=== PATIENT | male | born 1995 | race Caucasian/White ===

== ENCOUNTER 2022-09-04 13:21 | Outpatient (CLI) | payer OTHER, SELFPAY ==
--- NOTE | 2022-09-04 14:04 | XR_ITS ---
WS: [id number] Exam: XR ankle RT min 3V* [id number] Date/Time of Exam: 09/04/2022 2:09 PM Reason For Exam: right ankle fall Comparison 04/06/2014. Nondisplaced comminuted fracture of the lower diaphyses of the fibula noted. No other fractures can b e identified. The ankle mortise is intact. Prominent osteophytes noted along the dorsal margin of the talus and navicular. XR/XR ankle RT min 3V* [id number] IMPRESSION: 1. Comminuted nondisplaced lower fibular fracture. Soft tissue swelling.
== END 2022-09-04 13:22 | disposition home or self-care (01) ==
PROVIDERS: Visit Provider Nurse Practitioner Family
DX: S82.831A Other fracture of upper and lower end of right fibula, initial encounter for closed fracture (principal); X58.XXXA Exposure to other specified factors, initial encounter
CPT/HCPCS: 73610

== ENCOUNTER → 2022-09-27 14:34 | Outpatient (BNVA) | payer OTHER, SELFPAY | PROVIDERS: Visit Provider Podiatrist Foot & Ankle Surgery | DX: S82.831A Other fracture of upper and lower end of right fibula, initial encounter for closed fracture (principal); W10.2XXA Fall (on)(from) incline, initial encounter; L60.3 Nail dystrophy | CPT/HCPCS: 73610 ==

== ENCOUNTER → 2022-10-17 15:39 | Outpatient (BNVA) | payer OTHER, SELFPAY | PROVIDERS: Visit Provider Podiatrist Foot & Ankle Surgery | DX: S82.831A Other fracture of upper and lower end of right fibula, initial encounter for closed fracture (principal); W17.81XA Fall down embankment (hill), initial encounter; L60.3 Nail dystrophy | CPT/HCPCS: 73610 ==

== ENCOUNTER → 2022-11-07 15:36 | Outpatient (BNVA) | payer OTHER, SELFPAY | PROVIDERS: Visit Provider Podiatrist Foot & Ankle Surgery | DX: S82.831A Other fracture of upper and lower end of right fibula, initial encounter for closed fracture (principal); X58.XXXA Exposure to other specified factors, initial encounter | CPT/HCPCS: 73610 ==